=== PATIENT | male | born 1965 | race Caucasian/White ===

== ENCOUNTER 2018-01-17 13:55 | Emergency (ER) | payer OTHER ==
[~2018-01-17] VITALS: Ht 167.6 cm; Wt 81.7 kg
[2018-01-17] MEDS ORDERED: COZAAR 50 MG TA50 M2 PO (14:07)
[2018-01-17 14:41] LABS: ABSOLUTE BASOPHILS 0.1 thou/uL (0.0-0.2); ABSOLUTE EOSINOPHILS 0.1 thou/uL (0.0-0.7); ABSOLUTE LYMPHOCYTES 3.6 thou/uL (0.8-5.3); ABSOLUTE MONOCYTES 0.7 thou/uL (0.0-1.2); ABSOLUTE NEUTROPHILS 4.1 thou/uL (1.6-8.1); BASOPHILS 0.9 %; EOSINOPHILS 1.3 %; HEMATOCRIT 50.2 % (42.0-52.0); LYMPHOCYTES 42.1 %; MCH 30.8 pg (26.0-34.0); MCHC 33.9 g/dL (28.0-37.0); MPV 7.3 fl. (7.2-11.1); NUCLEATED RBCS 0 /100WBC; PLATELET COUNT* 257 thou/uL (150-400); POLYS 47.7 %; RBC 5.52 mil/uL (4.50-6.00); RDW-CV 13.2 % (10.5-14.5); WBC 8.7 thou/uL (4.0-11.0)
[2018-01-17 14:57] LABS: ANION GAP 7 mmol/L (7-16); BUN 17 mg/dL (7-18); CALCIUM 8.3 mg/dL (8.5-10.1); CHLORIDE 105 mmol/L (98-107); CO2 28 mmol/L (21-32); CREATININE 0.9 mg/dL (0.6-1.3); GLUCOSE 113 mg/dL (70-99); POTASSIUM 3.8 mmol/L (3.5-5.1); SODIUM 140 mmol/L (136-145)
[2018-01-17 15:04] LABS: ALBUMIN 3.6 g/dL (3.4-5.0); ALKALINE PHOSPHATASE 58 U/L (46-116); SGOT 15 U/L (15-37); SGPT 51 U/L (30-65); TOTAL BILIRUBIN 0.4 mg/dL (<0.1-1.0); TOTAL PROTEIN 7.1 g/dL (6.4-8.2); TROPONIN-I LEVEL <0.06 ng/mL (<0.06)
[2018-01-17 15:42] VITALS: BP 147/85
--- NOTE | 2018-01-19 09:38 | EKG ---
[place] [address] ELECTROCARDIOGRAM REPORT Name: AYLA OROPEZA [id number] Admission: 01/17/18 Attend Phys: Discharge: 01/17/18 Date of : 63 Report #: [id number] THIS REPORT FOR: //name// [facility] ED Test Date: 2018-01-17 Test Time: 14:40:32 Pat Name: AYLA OROPEZA Department: Room: Gender: M Financial Systems Analyst: Kirby ALMAGUER : 1965 Requested By: Laura Arguelles Order Number: [id number] MD: Juan J Peralta Measurements Intervals [place] Rate: 75 P: 16 GA: 161 QRS: -6 QRSD: 97 T: 24 QT: 379 QTc: 424 Interpretive Statements Sinus rhythm Probable left atrial enlargement Abnormal R-wave progression, early transition No previous ECG available for comparison Electronically Signed On 01-19-2018 9:38:35 CDT by Juan J Peralta [email or web address] <ELECTRONICALLY SIGNED> By: Juan J Peralta MD, [facility] 01/19/18 0938 1440 1440 Juan J Peralta MD, FACC /EPI
== END 2018-01-17 15:43 | disposition home or self-care (01) ==
LOC: M.ERS 13:55
PROVIDERS: Nurse Practitioner Family
DX: R07.9 Chest pain, unspecified (principal); R51 Headache; I10 Essential (primary) hypertension; F17.200 Nicotine dependence, unspecified, uncomplicated